=== PATIENT | female | born 1995 | race Caucasian/White ===

== ENCOUNTER 2017-09-10 19:56 | Emergency (ER) | payer OTHER ==
[~2017-09-10] VITALS: Ht 154.9 cm; Wt 64.0 kg
[2017-09-10 19:57] VITALS: BP 138/86
[2017-09-10 20:32] LABS: ALBUMIN 4.3 g/dL (3.4-5.0); BILIRUBIN, DIRECT 0.2 mg/dL (0.1-0.2)
[2017-09-10 20:34] LABS: BILIRUBIN,INDIRECT 0.6 mg/dL (0.0-2.0); BILIRUBIN,TOTAL 0.8 mg/dL (0.2-1.0)
== END 2017-09-10 20:57 | disposition home or self-care (01) ==
LOC: ED 20:51
DX: Z77.21 Contact with and (suspected) exposure to potentially hazardous body fluids (principal)
CPT/HCPCS: 36415; 80076; 86705; 86706; 86803; 87806; 99284; G0475